=== PATIENT | male | born 1965 | race Caucasian/White ===

== ENCOUNTER 2019-09-12 09:15 | Emergency (ER) | payer SELFPAY ==
--- NOTE | 2019-09-12 11:20 | ER ---
Nurse's Notes [facility] Name: Mani Muir Age: 54 yrs Sex: Male : 1965 Arrival Date: 09/12/2019 Time: 09:17 Bed 7 Private MD: Diagnosis: Unspecified urinary incontinence Presentation: 09/12 09:18 Presenting complaint: Patient states: "I've been constipated for about 3 or 4 days and aa5 I took some laxatives so finally I had a bowel movement yesterday". Pt states "My lower back was hurting but it's not hurting anymore". Pt also states "I've noticed that when I pee it seems like I wet myself right after because it takes a while for the urine to come all out". Transition of care: patient was not received from another setting of care. Onset of symptoms was August 2019. Risk Assessment: Do you want to hurt yourself or someone else? Patient reports no desire to harm self or others. Initial Sepsis Screen: Does the patient meet any 2 criteria? No. Patient's initial sepsis screen is negative. Does the patient have a suspected source of infection? No. Patient's initial sepsis screen is negative. Care prior to arrival: None. 09:18 Method Of Arrival: Ambulatory aa5 09:18 Acuity: ARACELIS 3 aa5 Historical: - Allergies: 09:18 Morphine; aa5 - PMHx: 09:18 None; aa5 - PSHx: 09:18 Left nephrectomy for donation; aa5 - Immunization history:: Adult Immunizations unknown. - Social history:: Smoking status: Patient/guardian denies using tobacco. - Ebola Screening: : No symptoms or risks identified at this time. Screenin:30 Abuse screen: Denies threats or abuse. Nutritional screening: No deficits noted. aa5 Tuberculosis screening: No symptoms or risk factors identified. Fall Risk None identified. Assessment: 09:18 General: Appears comfortable, Behavior is calm, cooperative. Pain: Denies pain. Neuro: aa5 Level of Consciousness is awake, alert, obeys commands, Oriented to person, place, time, situation. Cardiovascular: Heart tones S1 S2 present Rhythm is regular. Respiratory: Airway is patent Respiratory effort is even, unlabored, Respiratory pattern is regular, symmetrical. GI: Abdomen is round non-distended, Bowel sounds present X 4 quads. Abd is soft and non tender X 4 quads. : Denies burning with urination, inability to void. EENT: No signs and/or symptoms were reported regarding the EENT system. Derm: Skin is pink, warm \\T\\ dry. Musculoskeletal: Range of motion: intact in all extremities. 10:45 Reassessment: Patient is alert, oriented x 3, equal unlabored respirations, skin aa5 warm/dry/pink. Awaiting disposition. Pt notified of wait time . 11:25 Reassessment: Patient is alert, oriented x 3, equal unlabored respirations, skin aa5 warm/dry/pink. Vital Signs: 09:20 BP 137 / 94; Pulse 62; Resp 16 S; Temp 97.3(TE); Pulse Ox 100% on R/A; Weight 63.5 kg aa5 (R); Height 5 ft. 1 in. (154.94 cm) (R); Pain 0/10; 11:23 BP 131 / 96; Pulse 58; Resp 16 S; Temp 97.0(TE); Pulse Ox 100% on R/A; Pain 0/10; aa5 09:20 Body Mass Index 26.45 (63.50 kg, 154.94 cm) aa5 ED Course: 09:17 Patient arrived in ED. mr 09:18 Arm band placed on Patient placed in an exam room, on a stretcher. aa5 09:18 Patient has correct armband on for positive identification. Placed in gown. Bed in low aa5 position. Call light in reach. Side rails up X 1. 09:25 Radha Mayo, LUZ MARINA is Primary Nurse. aa5 09:27 Triage completed. aa5 09:28 Abilio Krishnan MD is Attending Physician. kdr 11:25 No provider procedures requiring assistance completed. Patient did not have IV access aa5 during this emergency room visit. Administered Medications: No medications were administered Outcome: 11:19 Discharge ordered by . kdr 11:25 Discharged to home ambulatory, with family. aa5 11:25 Condition: stable 11:25 Discharge instructions given to patient, Instructed on discharge instructions, follow up and referral plans. Demonstrated understanding of instructions, follow-up care. 11:29 Patient left the ED. aa5 Signatures: Abilio Krishnan MD MD kdr Rivera, Mary mr MayoRadha, RN RN aa5 Corrections: (The following items were deleted from the chart) : Transition of care: patient was not received from another setting of care. : Onset of symptoms was August 2019: Risk Assessment: Do you want to hurt yourself or someone else? Patient reports no aa5 desire to harm self or others. : Initial Sepsis Screen: Does the patient meet any 2 criteria? No. Patient's aa5 initial sepsis screen is negative. Does the patient have a suspected source of infection? No. Patient's initial sepsis screen is negative. : Care prior to arrival: None. : Presenting complaint: Patient states: "I've been constipated for about 3 or 4 aa5 days and I took some laxatives so finally I had a bowel movement yesterday". Pt states "My lower back was hurting but it's not hurting anymore". Pt also states "I've noticed that when I pee it seems like I wet myself right after because it takes a while for the urine to come all out" : Method Of Arrival: Ambulatory [facility] : Acuity: ARACELIS 3 [facility]
--- NOTE | 2019-09-12 11:21 | EDPHYS ---
Physician Documentation [facility] Name: Mani Muir Age: 54 yrs Sex: Male : 1965 Arrival Date: 09/12/2019 Time: 09:17 Bed 7 Private MD: ED Physician bAilio Krishnan HPI: 09/12 11:24 This 54 yrs old Male presents to ER via Ambulatory with complaints of Urinary kdr Problem, Back Pain. 11:24 The patient presents with urinary symptoms, incontinence of urine. Onset: The kdr symptoms/episode began/occurred gradually, Last few days. Modifying factors: The symptoms are alleviated by nothing, the symptoms are aggravated by nothing. Associated signs and symptoms: Pertinent positives: Very focal left CVA tenderness - very minor. Severity of symptoms: At their worst the symptoms were very mild. The patient has not experienced similar symptoms in the past. The patient has not recently seen a physician. Historical: - Allergies: 09:18 Morphine; aa5 - PMHx: 09:18 None; aa5 - PSHx: 09:18 Left nephrectomy for donation; aa5 - Immunization history:: Adult Immunizations unknown. - Social history:: Smoking status: Patient/guardian denies using tobacco. - Ebola Screening: : No symptoms or risks identified at this time. ROS: 11:24 Constitutional: Negative for fever, chills, and weight loss, Eyes: Negative for injury, kdr pain, redness, and discharge, ENT: Negative for injury, pain, and discharge, Neck: Negative for injury, pain, and swelling, Cardiovascular: Negative for chest pain, palpitations, and edema, Respiratory: Negative for shortness of breath, cough, wheezing, and pleuritic chest pain, Abdomen/GI: Negative for abdominal pain, nausea, vomiting, diarrhea, and constipation, Back: Negative for injury and pain, MS/Extremity: Negative for injury and deformity, Skin: Negative for injury, rash, and discoloration, Neuro: Negative for headache, weakness, numbness, tingling, and seizure activity. Psych: Negative for depression, anxiety, suicide ideation, homicidal ideation, and hallucinations, Allergy/Immunology: Negative for hives, rash, and allergies, Endocrine: Negative for neck swelling, polydipsia, polyuria, polyphagia, and marked weight changes, Hematologic/Lymphatic: Negative for swollen nodes, abnormal bleeding, and unusual bruising. 11:24 : Positive for urinary symptoms, bladder incontinence Negative for urinary frequency, hematuria, burning with urination, difficulty urinating, foul smelling urine, penile discharge, penile pain, testicular pain Exam: 11:24 Constitutional: This is a well developed, well nourished patient who is awake, alert, kdr and in no acute distress. Head/Face: Normocephalic, atraumatic. Eyes: Pupils equal round and reactive to light, extra-ocular motions intact. Lids and lashes normal. Conjunctiva and sclera are non-icteric and not injected. Cornea within normal limits. Periorbital areas with no swelling, redness, or edema. Neck: Trachea midline, no thyromegaly or masses palpated, and no cervical lymphadenopathy. Supple, full range of motion without nuchal rigidity, or vertebral point tenderness. No Meningismus. Chest/axilla: Normal chest wall appearance and motion. Nontender with no deformity. No lesions are appreciated. Cardiovascular: Regular rate and rhythm with a normal S1 and S2. No gallops, murmurs, or rubs. Normal PMI, no JVD. No pulse deficits. Respiratory: Lungs have equal breath sounds bilaterally, clear to auscultation and percussion. No rales, rhonchi or wheezes noted. No increased work of breathing, no retractions or nasal flaring. Back: No spinal tenderness. No costovertebral tenderness. Full range of motion. Skin: Warm, dry with normal turgor. Normal color with no rashes, no lesions, and no evidence of cellulitis. MS/ Extremity: Pulses equal, no cyanosis. Neurovascular intact. Full, normal range of motion. Neuro: Awake and alert, GCS 15, oriented to person, place, time, and situation. Cranial nerves II-XII grossly intact. Motor strength 5/5 in all extremities. Sensory grossly intact. Cerebellar exam normal. Normal gait. Psych: Awake, alert, with orientation to person, place and time. Behavior, mood, and affect are within normal limits. 11:24 Abdomen/GI: Inspection: abdomen appears normal, Bowel sounds: normal. Vital Signs: 09:20 BP 137 / 94; Pulse 62; Resp 16 S; Temp 97.3(TE); Pulse Ox 100% on R/A; Weight 63.5 kg aa5 (R); Height 5 ft. 1 in. (154.94 cm) (R); Pain 0/10; 11:23 BP 131 / 96; Pulse 58; Resp 16 S; Temp 97.0(TE); Pulse Ox 100% on R/A; Pain 0/10; aa5 09:20 Body Mass Index 26.45 (63.50 kg, 154.94 cm) aa5 MDM: 11:19 Patient medically screened. kdr 11:24 Data reviewed: vital signs, nurses notes, lab test result(s). Counseling: I had a kdr detailed discussion with the patient and/or guardian regarding: the historical points, exam findings, and any diagnostic results supporting the discharge/admit diagnosis, lab results, the need for outpatient follow up. 09/12 10:13 Order name: Urine Dipstick--Ancillary (enter results) eb 09/12 10:01 Order name: Urine Dipstick-Ancillary (obtain specimen); Complete Time: 10:09 kdr Administered Medications: No medications were administered Disposition: 09/12/19 11:19 Discharged to Home. Impression: Unspecified urinary incontinence. - Condition is Stable. - Discharge Instructions: Urinary Incontinence. - Medication Reconciliation Form, Thank You Letter, Work release form form. - Follow up: Private Physician; When: 2 - 3 days; Reason: If symptoms return, Further diagnostic work-up, Recheck today's complaints, Continuance of care, Re-evaluation by your physician. - Problem is new. - Symptoms are unchanged. Signatures: Dispatcher [employer] EDAR Abilio Krishnan MD MD kdr Radha Mayo, RN RN aa5 Corrections: (The following items were deleted from the chart) 11:29 11:19 09/12/2019 11:19 Discharged to Home. Impression: Unspecified urinary aa5 incontinence. Condition is Stable. Forms are Work release form, Medication Reconciliation Form, Thank You Letter, Antibiotic Education, Prescription Opioid Use. Follow up: Private Physician; When: 2 - 3 days; Reason: If symptoms return, Further diagnostic work-up, Recheck today's complaints, Continuance of care, Re-evaluation by your physician. Problem is new. Symptoms are unchanged. kdr
[2019-09-12 11:38] VITALS: BP 137/94; TEMP 97.3; O2SAT 100
[2019-09-12 19:01] LABS: Urine Blood NEGATIVE (NEG); Urine Glucose NEGATIVE (NEG); Urine Protein NEGATIVE (NEG); Urine Specific Gravity 1.015 (1.005-1.030); Urine pH 5.5 (5.0-7.0)
== END 2019-09-12 11:29 | disposition home or self-care (01) ==
LOC: ER 09:15
DX: R32 Unspecified urinary incontinence (principal); Z88.6 Allergy status to analgesic agent
CPT/HCPCS: 81003; 99281

== ENCOUNTER 2023-06-22 09:27 | Emergency (ER) | payer SELFPAY ==
--- NOTE | 2023-06-22 10:25 | RAD REPORT ---
EXAM DESCRIPTION: CT - Head Brain Wo Cont - 06/22/2023 10:14 am CLINICAL HISTORY: blurred vision;Headache Headache, drowsiness, visual disturbances. COMPARISON: MAXILLOFACIAL W O CONTRAST dated 05/27/2008; HEAD BRAIN W O CONTRAST dated 05/27/2008 TECHNIQUE: All CT scans are performed using dose optimization technique as appropriate and may inclu de automated exposure control or mA/KV adjustment according to patient size. FINDINGS: No intracranial hemorrhage, hydrocephalus or extra-axial fluid collection.No areas of brai n edema or evidence of midline shift. The paranasal sinuses and mastoids are clear. The calvarium is intact. IMPRESSION: No acute intracranial abnormality.
--- NOTE | 2023-06-22 10:32 | RAD REPORT ---
EXAM DESCRIPTION: RAD - Chest Single View - 06/22/2023 10:24 am CLINICAL HISTORY: CHEST PAIN Chest pain. COMPARISON: CHEST SINGLE VIEW dated 05/07/2010; CHEST PA AND LAT 2 VIEW dated 11/24/2003 FINDINGS: Portable technique limits examination quality. The lungs are grossly clear. The heart is normal in size. No displaced fractures. IMPRESSION: No acute intrathoracic process suspected.
[2023-06-22 13:02] LABS: Absolute Lymphocytes (CBC) 1.9 K/uL (0.7-4.9); Hematocrit 43.8 % (39.6-49.0); Lymphocytes % 20.7 % (15.3-44.8); MCV 91.1 fL (80-100); Platelets 291 thou/uL (152-406); RBC Red Blood Cell Count 4.81 M/uL (4.33-5.43)
[2023-06-22 13:08] LABS: Protime INR 0.92
[2023-06-22] MEDS ORDERED: NA CHLORIDE 0.9% 1,000 ML ONE (13:16)
[2023-06-22] MEDS ORDERED: MAGNES/ALUMIN/SIMET 30ML UCUP ONE (13:16)
[2023-06-22 13:28] LABS: Albumin 3.9 g/dL (3.4-5.0); Bilirubin Direct 0.2 mg/dL (0-0.2); Bilirubin Indirect, Calculated 0.5 mg/dL (0.2-0.8); Bilirubin Total 0.7 mg/dL (0.2-1.0); Troponin High Sensitivity 4.7 pg/mL (<58.9)
--- NOTE | 2023-06-22 13:33 | ER ---
Nurse's Notes [facility] Name: Mani Muir Age: 58 yrs Sex: Male : 1965 Arrival Date: 06/22/2023 Time: 09:27 Bed 14 Private MD: Diagnosis: Headache;Acute gastritis without bleeding Presentation: 06/22 09:54 Chief complaint: Patient states: BLURRY VISION, STEIN AND MALAISE SINCE Y/D. RECENT H/O bp HEAT EXHAUSTION. Coronavirus screen: At this time, the client does not indicate any symptoms associated with coronavirus-19. Ebola Screen: No symptoms or risks identified at this time. Initial Sepsis Screen: Does the patient meet any 2 criteria? No. Patient's initial sepsis screen is negative. Does the patient have a suspected source of infection? No. Patient's initial sepsis screen is negative. Risk Assessment: Do you want to hurt yourself or someone else? Patient reports no desire to harm self or others. Onset of symptoms was June 21, 2023 at 17:00. 09:54 Method Of Arrival: Ambulatory bp 09:54 Acuity: ARACELIS 3 bp Triage Assessment: 09:55 Headache History: The patient has had previous headaches and this one is similar to bp previous episodes. General: Appears uncomfortable, Behavior is calm, cooperative, appropriate for age. Pain: Complains of pain in head Pain currently is 5 out of 10 on a pain scale. Pain began 1 day ago. Also complains of no other associated symptoms. EENT: No deficits noted. Neuro: Reports headache. Historical: - Allergies: 09:55 Morphine; bp - PMHx: 09:55 Gastric reflux; bp - Immunization history:: Adult Immunizations up to date. - Social history:: Smoking status: Patient denies any tobacco usage or history of. - Family history:: not pertinent. - Hospitalizations: : No recent hospitalization is reported. Screenin:[facility] ED Fall Risk Assessment (Adult) History of falling in the last 3 months, vg1 including since admission No falls in past 3 months (0 pts). Abuse screen: Denies threats or abuse. Denies injuries from another. Nutritional screening: No deficits noted. Tuberculosis screening: No symptoms or risk factors identified. Assessment: 13:00 General: Appears in no apparent distress. comfortable, Behavior is calm, cooperative. vg1 Pain: Denies pain. Complains of pain in throat. Neuro: Level of Consciousness is awake, alert, obeys commands, Oriented to person, place, time, situation. Cardiovascular: Patient's skin is warm and dry. Respiratory: Airway is patent Respiratory effort is even, unlabored. GI: No signs and/or symptoms were reported involving the gastrointestinal system. : No signs and/or symptoms were reported regarding the genitourinary system. EENT: Throat is clear. Derm: Skin is pink, warm \T\ dry. Musculoskeletal: Circulation, motion, and sensation intact. 13:39 Reassessment: pt up for d/c, awaiting for IV fluids to complete. vg1 Vital Signs: 09:54 BP 122 / 89; Pulse 56; Resp 16; Temp 98; Pulse Ox 100% ; bp 13:00 BP 144 / 91; Pulse 57; Resp 20; Pulse Ox 100% ; vg1 14:42 BP 147 / 89; Pulse 58; Resp 14; Pulse Ox 99% on R/A; vg1 ED Course: 09:30 Patient arrived in ED. mg5 09:55 Triage completed. bp 09:56 Arm band placed on. bp 09:57 Eric Escamilla MD is Attending Physician. rn 10:15 CT Head Brain wo Cont In Process Unspecified. EDMS 10:26 XRAY Chest (1 view) In Process Unspecified. EDMS 11:07 initiated a transfer with James Chang from the [facility]. eb 12:53 Lipase Sent. mb9 12:53 LFT's Sent. mb9 12:53 Troponin High Sensitivity Sent. mb9 12:53 Protime (+inr) Sent. mb9 12:53 Ptt, Activated Sent. mb9 12:53 Basic Metabolic Panel Sent. mb9 12:53 CBC with Diff Sent. mb9 12:53 EKG done, by ED staff, reviewed by Eric Escamilla MD. Inserted saline lock: 20 gauge in mb9 right antecubital area, using aseptic technique. 13:00 Patient has correct armband on for positive identification. Bed in low position. Call vg1 light in reach. Side rails up X 1. Client placed on continuous cardiac and pulse oximetry monitoring. NIBP monitoring applied. 13:01 Elina Griffin, RN is Primary Nurse. vg1 14:43 No provider procedures requiring assistance completed. IV discontinued, intact, vg1 bleeding controlled, No redness/swelling at site. Pressure dressing applied. Administered Medications: 13:13 Drug: GI Cocktail without - (Maalox PO Suspension 30 ml, Lidocaine Mucous vg1 Membrane Liquid 2 % 15 ml) Route: PO; 14:43 Follow up: Response: No change in condition vg1 13:16 Drug: NS 0.9% IV 1000 ml Route: IV; Rate: 1000 ml; Site: right antecubital; vg1 14:43 Follow up: IV Status: Completed infusion; IV Intake: 1000ml vg1 Medication: 13:00 VIS not applicable for this client. vg1 Intake: 14:43 IV: 1000ml; Total: 1000ml. vg1 Outcome: 13:33 Discharge ordered by . rn 14:43 Discharged to home ambulatory. vg1 14:43 Condition: good 14:43 Discharge instructions given to patient, Instructed on discharge instructions, follow up and referral plans. medication usage, Demonstrated understanding of instructions, follow-up care, medications, Prescriptions given X 1. 14:43 Patient left the ED. vg1 Signatures: Dispatcher [employer] EDMS Eric Escamilla MD MD rn Peltier, Brian, RN RN Nicole Huizar Victoria RN RN vg1 Melissa Calle, RN RN mb9 Yvette Carey mg5
--- NOTE | 2023-06-22 13:34 | EDPHYS ---
Physician Documentation [facility] Name: Mani Muir Age: 58 yrs Sex: Male : 1965 Arrival Date: 06/22/2023 Time: 09:27 Bed 14 Private MD: ED Physician Eric Escamilla HPI: 06/22 10:21 This 58 yrs old Male presents to ER via Ambulatory with complaints of Headache, rn generalized weakness, dehydration. 10:25 Pt reports working outside in heat yesterday, feeling dehydrated, generalized weakness, rn headache, fatigue, upper abd pain, hoarse voice, acid reflux. Feels much better today, came for evaluation and to see if needs more time off. . Onset: The symptoms/episode began/occurred yesterday. Severity of symptoms: At their worst the symptoms were moderate in the emergency department the symptoms have improved. The patient has not experienced similar symptoms in the past. The patient has not recently seen a physician. Historical: - Allergies: 09:55 Morphine; bp - PMHx: 09:55 Gastric reflux; bp - Immunization history:: Adult Immunizations up to date. - Social history:: Smoking status: Patient denies any tobacco usage or history of. - Family history:: not pertinent. - Hospitalizations: : No recent hospitalization is reported. ROS: 10:25 Constitutional: Negative for fever, chills, and weight loss, Cardiovascular: Negative rn for palpitations, and edema, Respiratory: Negative for shortness of breath, cough, wheezing, and pleuritic chest pain, Abdomen/GI: Negative for diarrhea, and constipation, MS/Extremity: Negative for injury and deformity, Skin: Negative for injury, rash, and discoloration, Neuro: Negative for numbness, tingling, and seizure. Exam: 10:25 Constitutional: This is a well developed, well nourished patient who is awake, alert, rn and in no acute distress. Ambulatory to room without difficulty or assistance. Head/Face: Normocephalic, atraumatic. Eyes: Pupils equal round and reactive to light, extra-ocular motions intact. Periorbital areas with no swelling, redness, or edema. ENT: dry MM Cardiovascular: Regular rate and rhythm. No pulse deficits. Respiratory: No increased work of breathing, no retractions or nasal flaring. Abdomen/GI: soft, mild epigastric tenderness, no rebound Skin: Warm, dry MS/ Extremity: Pulses equal, no cyanosis. Neuro: Awake and alert, GCS 15, oriented to person, place, time, and situation. Cranial nerves II-XII grossly intact. Motor strength 5/5 in all extremities. Sensory grossly intact. Cerebellar exam normal. Normal gait. 13:32 ECG was reviewed by the Attending Physician. rn Vital Signs: 09:54 BP 122 / 89; Pulse 56; Resp 16; Temp 98; Pulse Ox 100% ; bp 13:00 BP 144 / 91; Pulse 57; Resp 20; Pulse Ox 100% ; vg1 14:42 BP 147 / 89; Pulse 58; Resp 14; Pulse Ox 99% on R/A; vg1 MDM: 09:58 Patient medically screened. rn 13:32 Differential Diagnosis heat exhaustion, dehydration, electrolyte disturbance, rn gastritis, esophagitis. Data reviewed: vital signs, nurses notes, lab test result(s), EKG, radiologic studies, CT scan, plain films, and as a result, I will discharge patient. Counseling: I had a detailed discussion with the patient and/or guardian regarding: the historical points, exam findings, and any diagnostic results supporting the discharge/admit diagnosis, lab results, radiology results, the need for outpatient follow up, to return to the emergency department if symptoms worsen or persist or if there are any questions or concerns that arise at home. Special discussion: I discussed with the patient/guardian in detail that at this point there is no indication for admission to the hospital. It is understood, however, that if the symptoms persist or worsen the patient needs to return immediately for re-evaluation. 06/22 10:12 Order name: CBC with Diff; Complete Time: : rn 06/22 10:12 Order name: Basic Metabolic Panel; Complete Time: : rn 06/22 10:12 Order name: Protime (+inr); Complete Time: : rn 06/22 10:12 Order name: Ptt, Activated; Complete Time: rn 06/22 10:12 Order name: Troponin High Sensitivity; Complete Time: rn 06/22 10:12 Order name: LFT's; Complete Time: : rn 06/22 10:12 Order name: Lipase; Complete Time: rn 06/22 09:59 Order name: CT Head Brain wo Cont; Complete Time: 10:34 rn 06/22 10:12 Order name: XRAY Chest (1 view); Complete Time: 10:34 rn 06/22 10:12 Order name: EKG; Complete Time: 10:13 rn 06/22 10:12 Order name: IV Start; Complete Time: 12:53 rn 06/22 10:12 Order name: EKG - Nurse/Tech; Complete Time: 12:53 rn EC:32 Rate is 46 beats/min. Rhythm is regular. QRS Mccoll is Normal. ND interval is normal. QRS rn interval is normal. QT interval is normal. No Q waves. T waves are Normal. No ST changes noted. Clinical impression: Sinus bradycardia. Interpreted by me. Reviewed by me. Administered Medications: 13:13 Drug: GI Cocktail without - (Maalox PO Suspension 30 ml, Lidocaine Mucous vg1 Membrane Liquid 2 % 15 ml) Route: PO; 14:43 Follow up: Response: No change in condition vg1 13:16 Drug: NS 0.9% IV 1000 ml Route: IV; Rate: 1000 ml; Site: right antecubital; vg1 14:43 Follow up: IV Status: Completed infusion; IV Intake: 1000ml vg1 Disposition Summary: 06/22/23 13:33 Discharge Ordered Location: Home rn Problem: new rn Symptoms: have improved rn Condition: Stable rn Diagnosis - Headache rn - Acute gastritis without bleeding rn Followup: rn - With: Private Physician - When: As needed - Reason: Recheck today's complaints, Re-evaluation by your physician Discharge Instructions: - Discharge Summary Sheet rn - Gastritis, Adult rn - General Headache Without Cause rn Forms: - Medication Reconciliation Form rn - Thank You Letter rn - Antibiotic music internship - Prescription Opioid Use rn - Patient Portal Instructions rn - Work release form vg1 Prescriptions: - Protonix 40 mg Oral Tablet - take 1 tablet by ORAL route once daily; 30 tablet; Refills: 0, Product rn Selection Permitted Signatures: Dispatcher [employer] Eric Faust MD MD rn Peltier, Brian, RN RN Elina Pugh, RN RN vg1
[2023-06-22 15:18] VITALS: TEMP 98
[2023-06-22 15:29] VITALS: BP 147/89; O2SAT 99
--- NOTE | 2023-06-25 15:36 | EKG ---
Test Date: 2023-06-22 Test Time: 12:43:14 [employer] Storage Clerk: MB MEASUREMENT RESULTS: Intervals: Rate: 46 WI: 134 QRSD: 82 QT: 532 QTc: 465 [place]: P: -1 WI: 134 QRS: 8 T: 52 INTERPRETIVE STATEMENTS: Sinus bradycardia Otherwise normal ECG Compared to ECG 11/08/2014 15:50:53 Sinus rhythm no longer present Prolonged QT interval no longer present Electronically Signed On 06-25-23 15:32:25 CDT by Tae Ramirez
== END 2023-06-22 14:43 | disposition home or self-care (01) ==
LOC: ER 09:27
DX: K29.00 Acute gastritis without bleeding (principal); Z88.5 Allergy status to narcotic agent
CPT/HCPCS: 36415; 70450; 71045; 80048; 80076; 83690; 84484; 85025; 85610; 85730; 93005; 96360; 99285; J7030